=== PATIENT | male | born 1995 | race Caucasian/White ===

== ENCOUNTER 2020-04-21 17:58 | Outpatient (REF) | payer MEDICAID, SELFPAY ==
[2020-04-21 21:04] LABS: Abs Immature Grans 0.01 10^3/uL (0.0-0.06); Absolute Basophil Count 0.03 10^3/uL (0.0-0.2); Absolute Eosinophil Count 0.09 10^3/uL (0.0-0.7); Absolute Lymphocyte Count 1.87 10^3/uL (1.2-3.4); Absolute Monocyte Count 0.67 10^3/uL (0.1-0.8); Absolute Neutrophil Count 3.16 10^3/uL (1.2-6.7); Basophils % 0.5; Eosinophils % 1.5; HCT 40.3 % (40.0-50.0); HGB 14.4 g/dL (13.5-17.5); Immature Grans % 0.2; Lymphocytes % 32.1; MCHC 35.7 % (32.0-36.0); MCV 86.9 fL (80-95); MPV 10.7 fL (8.0-11.0); Monocytes % 11.5; Neutrophils % 54.2; Nucleated RBC 0 %; Platelet Count 253 10^3/uL (130-400); RBC 4.64 10^6/uL (4.36-5.78); RDW 11.5 % (11.8-14.1); RDW-SD 36.3 fL; WBC 5.83 10^3/uL (4.4-10.8)
[2020-04-21 22:06] LABS: Anion Gap 8.6 mmol/L (3-11); BUN 11 mg/dL (7-18); CO2 28.4 mmol/L (21.0-32.0); CREATININE 0.9 mg/dL (0.70-1.30); Calcium 8.8 mg/dL (8.5-10.1); Chloride 106 mmol/L (98-107); Glucose 92 mg/dL (74-106); Potassium 3.6 mmol/L (3.5-5.1); Sodium 143 mmol/L (136-145); TSH (W/Ref FT4) 0.81 uIU/mL (0.36-3.74); Vitamin B12 662 pg/mL (193-986)
[2020-04-23 05:06] LABS: Vitamin D 25 Total 14.8 ng/ml (30-100)
== END 2020-04-21 17:59 | disposition home or self-care (01) ==
LOC: NCHCN 17:58
PROVIDERS: Visit Provider Nurse Practitioner Family
DX: F41.9 Anxiety disorder, unspecified (principal); E55.9 Vitamin D deficiency, unspecified
CPT/HCPCS: 80048; 82306; 82607; 84443; 85025

== ENCOUNTER 2020-06-23 19:43 | Outpatient (REF) | payer MEDICAID, SELFPAY ==
[2020-06-25 04:46] LABS: Vitamin D 25 Total 40.6 ng/mL (30-100)
== END 2020-06-23 19:44 | disposition home or self-care (01) ==
LOC: NCHCN 19:43
PROVIDERS: Visit Provider Nurse Practitioner Family
DX: E55.9 Vitamin D deficiency, unspecified (principal)
CPT/HCPCS: 82306